=== PATIENT | male | born 1945 | race Caucasian/White ===

== ENCOUNTER 2020-12-15 17:01 | Day surgery (SDC) | payer MEDICARE ==
[2020-12-15] MEDS ORDERED: diphenhydrAMINE 25 MG CAP ONE (17:22)
[2020-12-15] MEDS ORDERED: Acetaminophen 500 MG TAB ONE (17:22)
[2020-12-15 19:32] LABS: #Eosinphils 0.1 thou/uL (0.0-0.7); #Lymphocytes 1.2 thou/uL (1.20-3.40); #Monocytes 0.2 thou/uL (0.11-0.59); #Neutrophils 11.1 thou/uL (1.40-6.50); %Basophils 0.1 % (0.0-1.0); %Eosinophils 1.2 % (0.0-10.0); %Lymphocytes 9.7 % (21.0-51.0); %Monocytes 1.8 % (0.0-10.0); %Neutrophils 87.3 % (42.0-75.0); Hemoglobin 10.3 g/dL (14.0-18.0); Mean Corpuscular HGB CONC 35.5 g/dL (32.0-36.0); Mean Corpuscular Volume 95.9 fL (78.0-98.0); Mean Platelet Volume 8.6 fL (7.4-10.4); Platelet Count 16 thou/uL (130-400); RBC Distribution Width 12.1 % (11.5-14.5); Red Blood Cell (RBC) Count 3.04 mill/uL (4.70-6.10); White Blood Cell (WBC) Count 12.7 thou/uL (4.8-10.8)
== END 2020-12-15 19:00 | disposition home or self-care (01) ==
LOC: SDC/OP 17:01
PROVIDERS: ATTEND Internal Medicine Hematology & Oncology
PROC: 30233R1 Transfusion of Nonautologous Platelets into Peripheral Vein, Percutaneous Approach (ICD-10-PCS; principal; 2020-12-15)
DX: D69.6 Thrombocytopenia, unspecified (principal); D64.9 Anemia, unspecified
CPT/HCPCS: 36430; 85025; 86850; 86900; 86901; P9035; 36415

== ENCOUNTER 2020-12-24 09:43 | Inpatient (IN) | payer MEDICARE ==
[2020-12-24 11:46] LABS: ALT (SGPT) 35 U/L (8-55); AST (SGOT) 24 U/L (5-34); Albumin 2.9 g/dL (3.4-4.8); Alkaline Phosphatase 80 U/L (40-110); Anion Gap 11 mmol/L (10-20); BUN (Urea Nitrogen) 13 mg/dL (8.4-25.7); Bilirubin, Total 1.5 mg/dL (0.2-1.2); Calc. Creatinine Clearance 0 mL/min (70-130); Calcium 8.4 mg/dL (7.8-10.44); Carbon Dioxide 27 mmol/L (23-31); Chloride 105 mmol/L (98-107); Globulin 3.1 g/dL (2.4-3.5); Glucose 88 mg/dL (83-110); Potassium 4.2 mmol/L (3.5-5.1); Sodium 139 mmol/L (136-145)
[2020-12-24] MEDS ORDERED: Dexamethasone 10 MG/ML VIAL ONE (12:00)
[2020-12-24 12:15] LABS: #Eosinphils 0.1 thou/uL (0.0-0.7); #Lymphocytes 1.3 thou/uL (1.20-3.40); #Monocytes 0.6 thou/uL (0.11-0.59); #Neutrophils 7.4 thou/uL (1.40-6.50); %Basophils 0.1 % (0.0-1.0); %Eosinophils 1.1 % (0.0-10.0); %Lymphocytes 13.7 % (21.0-51.0); %Monocytes 6.7 % (0.0-10.0); %Neutrophils 78.5 % (42.0-75.0); Hemoglobin 10.9 g/dL (14.0-18.0); Mean Corpuscular Hemoglobin 34.4 pg (27.0-31.0); Mean Platelet Volume 14.1 fL (7.4-10.4); Platelet Count 2 thou/uL (130-400); RBC Distribution Width 15.1 % (11.5-14.5); Red Blood Cell (RBC) Count 3.19 mill/uL (4.70-6.10); White Blood Cell (WBC) Count 9.5 thou/uL (4.8-10.8)
[2020-12-24] MEDS ORDERED: Senokot S 8.6-50 MG TAB PO PRN (13:56)
[2020-12-24] MEDS ORDERED: Acetaminophen 325 MG TAB PO PRN (13:56)
[2020-12-24] MEDS ORDERED: Benzonatate 100 MG CAP PO PRN (14:48)
[2020-12-24 16:44] LABS: SARS-CoV-2 NAA Rapid Test DETECTED (NotDetected)
[2020-12-24] MEDS ORDERED: OCTAGAM 10% (10 GM/100 ML VIAL) IVPB SCH (17:00)
[2020-12-24] MEDS ORDERED: ADMIXTURE FEE IVPB SCH (17:30)
[2020-12-24] MEDS ORDERED: OCTAGAM IVPB SCH (17:30)
[2020-12-24 19:09] VITALS: BMI 22.8
[2020-12-24] MEDS: Famotidine 20 MG TAB PO SCH (20:08)
[2020-12-24] MEDS: Atorvastatin Calcium 20 MG TAB PO SCH (20:08)
[2020-12-24 21:49] LABS: #Lymphocytes 0.4 thou/uL (1.20-3.40); #Monocytes 0.1 thou/uL (0.11-0.59); %Basophils 0.4 % (0.0-1.0); %Eosinophils 0.1 % (0.0-10.0); %Lymphocytes 5.9 % (21.0-51.0); %Neutrophils 92.6 % (42.0-75.0); Hemoglobin 10.2 g/dL (14.0-18.0); Mean Corpuscular HGB CONC 33.5 g/dL (32.0-36.0); Mean Corpuscular Hemoglobin 33.5 pg (27.0-31.0); Mean Corpuscular Volume 99.9 fL (78.0-98.0); Mean Platelet Volume 11.9 fL (7.4-10.4); Platelet Count 3 thou/uL (130-400); RBC Distribution Width 14.9 % (11.5-14.5); Red Blood Cell (RBC) Count 3.05 mill/uL (4.70-6.10); White Blood Cell (WBC) Count 6.5 thou/uL (4.8-10.8)
[2020-12-25 08:57] LABS: Hemoglobin 8.8 g/dL (14.0-18.0); Mean Corpuscular HGB CONC 33.1 g/dL (32.0-36.0); Mean Corpuscular Hemoglobin 33.3 pg (27.0-31.0); Mean Platelet Volume 14.9 fL (7.4-10.4); Platelet Count 7 thou/uL (130-400); RBC Distribution Width 14.6 % (11.5-14.5); Red Blood Cell (RBC) Count 2.63 mill/uL (4.70-6.10); White Blood Cell (WBC) Count 8.4 thou/uL (4.8-10.8)
[2020-12-25 09:29] LABS: #Basophils 0.1 thou/uL (0.0-0.2); #Lymphocytes 0.4 thou/uL (1.20-3.40); #Monocytes 0.3 thou/uL (0.11-0.59); #Neutrophils 7.7 thou/uL (1.40-6.50); %Basophils 0.6 % (0.0-1.0); %Lymphocytes 4.8 % (21.0-51.0); %Monocytes 3.3 % (0.0-10.0); %Neutrophils 91.2 % (42.0-75.0); MDiff Complete? YES; Platelet Morphology Comment Appears Decreased; Polychromasia SLIGHT = 2-3 cells (100X) (0-2/hpf)
[2020-12-25] MEDS: Lisinopril 20 MG TAB PO SCH (09:35)
[2020-12-25] MEDS: Famotidine 20 MG TAB PO SCH (09:41)
[2020-12-25] MEDS ORDERED: Dexamethasone 40 MG in Sodium Chloride 0.9% 50 ML IVPB SCH (14:00)
[2020-12-25 15:14] LABS: #Basophils 0.1 thou/uL (0.0-0.2); #Lymphocytes 0.5 thou/uL (1.20-3.40); #Monocytes 0.5 thou/uL (0.11-0.59); #Neutrophils 12.3 thou/uL (1.40-6.50); %Basophils 0.5 % (0.0-1.0); %Eosinophils 0.1 % (0.0-10.0); %Lymphocytes 3.5 % (21.0-51.0); %Monocytes 3.8 % (0.0-10.0); %Neutrophils 92.1 % (42.0-75.0); Mean Corpuscular HGB CONC 34.6 g/dL (32.0-36.0); Mean Corpuscular Hemoglobin 34.9 pg (27.0-31.0); Mean Platelet Volume 10.5 fL (7.4-10.4); Platelet Count 42 thou/uL (130-400); RBC Distribution Width 14.5 % (11.5-14.5); Red Blood Cell (RBC) Count 2.31 mill/uL (4.70-6.10); White Blood Cell (WBC) Count 13.3 thou/uL (4.8-10.8)
[2020-12-25] MEDS: Atorvastatin Calcium 20 MG TAB PO SCH (20:03)
[2020-12-26 07:24] LABS: #Lymphocytes 0.6 thou/uL (1.20-3.40); #Monocytes 0.4 thou/uL (0.11-0.59); #Neutrophils 14.7 thou/uL (1.40-6.50); %Basophils 0.2 % (0.0-1.0); %Eosinophils 0.1 % (0.0-10.0); %Lymphocytes 3.9 % (21.0-51.0); %Monocytes 2.4 % (0.0-10.0); %Neutrophils 93.4 % (42.0-75.0); Hemoglobin 8.7 g/dL (14.0-18.0); Mean Corpuscular HGB CONC 32.9 g/dL (32.0-36.0); Mean Corpuscular Hemoglobin 33.4 pg (27.0-31.0); Mean Platelet Volume 12.3 fL (7.4-10.4); Platelet Count 46 thou/uL (130-400); RBC Distribution Width 14.6 % (11.5-14.5); White Blood Cell (WBC) Count 15.8 thou/uL (4.8-10.8)
[2020-12-26] MEDS: Lisinopril 20 MG TAB PO SCH (09:34)
[2020-12-26] MEDS: Dexamethasone 40 MG in Sodium Chloride 0.9% 50 ML IVPB SCH (09:36)
[2020-12-26] MEDS: Atorvastatin Calcium 20 MG TAB PO SCH (20:19)
[2020-12-27 06:01] LABS: #Basophils 0.1 thou/uL (0.0-0.2); #Lymphocytes 0.8 thou/uL (1.20-3.40); #Monocytes 0.6 thou/uL (0.11-0.59); #Neutrophils 13.7 thou/uL (1.40-6.50); %Basophils 0.6 % (0.0-1.0); %Eosinophils 0.1 % (0.0-10.0); %Neutrophils 90.3 % (42.0-75.0); Hemoglobin 8.8 g/dL (14.0-18.0); Mean Corpuscular HGB CONC 34.2 g/dL (32.0-36.0); Mean Corpuscular Hemoglobin 34.6 pg (27.0-31.0); Mean Platelet Volume 10.9 fL (7.4-10.4); Platelet Count 80 thou/uL (130-400); RBC Distribution Width 14.8 % (11.5-14.5); Red Blood Cell (RBC) Count 2.54 mill/uL (4.70-6.10); White Blood Cell (WBC) Count 15.2 thou/uL (4.8-10.8)
[2020-12-27] MEDS: Dexamethasone 40 MG in Sodium Chloride 0.9% 50 ML IVPB SCH (08:57)
[2020-12-27] MEDS: Lisinopril 20 MG TAB PO SCH (09:02)
[2020-12-27] MEDS: Atorvastatin Calcium 20 MG TAB PO SCH (20:17)
[2020-12-28 06:37] LABS: #Lymphocytes 0.8 thou/uL (1.20-3.40); #Monocytes 0.7 thou/uL (0.11-0.59); #Neutrophils 9.8 thou/uL (1.40-6.50); %Basophils 0.1 % (0.0-1.0); %Eosinophils 0.3 % (0.0-10.0); %Monocytes 6.1 % (0.0-10.0); %Neutrophils 86.6 % (42.0-75.0); Hemoglobin 9.2 g/dL (14.0-18.0); Mean Corpuscular HGB CONC 33.8 g/dL (32.0-36.0); Mean Corpuscular Hemoglobin 34.2 pg (27.0-31.0); Mean Platelet Volume 10.3 fL (7.4-10.4); Platelet Count 115 thou/uL (130-400); RBC Distribution Width 14.6 % (11.5-14.5); Red Blood Cell (RBC) Count 2.68 mill/uL (4.70-6.10); White Blood Cell (WBC) Count 11.3 thou/uL (4.8-10.8)
[2020-12-28 08:44] VITALS: TEMP 97.7
[2020-12-28] MEDS: Lisinopril 20 MG TAB PO SCH (08:56)
[2020-12-28] MEDS: Dexamethasone 40 MG in Sodium Chloride 0.9% 50 ML IVPB SCH (08:56)
[2020-12-28 08:57] VITALS: BP 155/75
== END 2020-12-28 13:25 | disposition home or self-care (01) | DRG 178 ==
LOC: ERS 09:43 → T4-B 13:34
PROVIDERS: ADMIT Student in an Organized Health Care Education/Training Program; ATTEND Student in an Organized Health Care Education/Training Program
PROC: 30233R1 Transfusion of Nonautologous Platelets into Peripheral Vein, Percutaneous Approach (ICD-10-PCS; principal; 2020-12-24)
PROC: 3E0333Z Introduction of Anti-inflammatory into Peripheral Vein, Percutaneous Approach (ICD-10-PCS; 2020-12-24)
PROC: 30233S1 Transfusion of Nonautologous Globulin into Peripheral Vein, Percutaneous Approach (ICD-10-PCS; 2020-12-24)
DX: U07.1 COVID-19 (principal); D69.3 Immune thrombocytopenic purpura; F17.210 Nicotine dependence, cigarettes, uncomplicated; I10 Essential (primary) hypertension; I73.9 Peripheral vascular disease, unspecified; J98.8 Other specified respiratory disorders; E78.2 Mixed hyperlipidemia; R05 Cough; E78.5 Hyperlipidemia, unspecified; Z79.899 Other long term (current) drug therapy; Z82.3 Family history of stroke; Z98.890 Other specified postprocedural states
CPT/HCPCS: 36415; 36430; 80053; 85025; 86850; 86900; 86901; 96374; J1100; J1568; P9035; U0002

== ENCOUNTER 2021-01-13 11:38 | Inpatient (IN) | payer MEDICARE ==
[2021-01-13 12:53] LABS: ALT (SGPT) 16 U/L (8-55); AST (SGOT) 20 U/L (5-34); Albumin 3.1 g/dL (3.4-4.8); Alkaline Phosphatase 115 U/L (40-110); Anion Gap 8 mmol/L (10-20); BUN (Urea Nitrogen) 7 mg/dL (8.4-25.7); Bilirubin, Total 0.8 mg/dL (0.2-1.2); Calc. Creatinine Clearance 0 mL/min (70-130); Calcium 8.9 mg/dL (7.8-10.44); Carbon Dioxide 30 mmol/L (23-31); Chloride 106 mmol/L (98-107); Globulin 3.9 g/dL (2.4-3.5); Glucose 137 mg/dL (83-110); Potassium 4.4 mmol/L (3.5-5.1); Sodium 140 mmol/L (136-145)
[2021-01-13 13:11] LABS: #Basophils 0.1 thou/uL (0.0-0.2); #Eosinphils 0.3 thou/uL (0.0-0.7); #Lymphocytes 1.6 thou/uL (1.20-3.40); #Monocytes 0.6 thou/uL (0.11-0.59); #Neutrophils 3.1 thou/uL (1.40-6.50); %Basophils 0.9 % (0.0-1.0); %Eosinophils 5.2 % (0.0-10.0); %Lymphocytes 28.2 % (21.0-51.0); %Monocytes 10.4 % (0.0-10.0); %Neutrophils 55.3 % (42.0-75.0); Mean Corpuscular HGB CONC 32.9 g/dL (32.0-36.0); Mean Corpuscular Hemoglobin 33.7 pg (27.0-31.0); Mean Platelet Volume 14.1 fL (7.4-10.4); Platelet Count 3 thou/uL (130-400); RBC Distribution Width 14.7 % (11.5-14.5); Red Blood Cell (RBC) Count 3.27 mill/uL (4.70-6.10); White Blood Cell (WBC) Count 5.7 thou/uL (4.8-10.8)
[2021-01-13 13:13] LABS: MDiff Complete? YES; Macrocytosis SLIGHT = 6-15 cells (100X) (0-5/hpf); Platelet Morphology Comment Appears Decreased; Polychromasia SLIGHT = 2-3 cells (100X) (0-2/hpf)
[2021-01-13] MEDS ORDERED: Dexamethasone 10 MG/ML VIAL ONE (15:54)
[2021-01-13] MEDS ORDERED: OCTAGAM 10% 60 GM, OCTAGAM 10% 10 GM in Premix Bag 1 BAG IVPB SCH (17:15)
[2021-01-13 20:00] VITALS: BMI 23.0
[2021-01-13] MEDS: Atorvastatin Calcium 40 MG TAB PO SCH (20:11)
[2021-01-14] MEDS ORDERED: hydrALAZINE 20 MG/ML VIAL SLOW IVP PRN ×2 (04:28→09:40)
[2021-01-14 06:47] LABS: Hemoglobin 9.2 g/dL (14.0-18.0); Mean Corpuscular HGB CONC 32.6 g/dL (32.0-36.0); Mean Corpuscular Hemoglobin 33.8 pg (27.0-31.0); Mean Platelet Volume 14.4 fL (7.4-10.4); Platelet Count 18 thou/uL (130-400); RBC Distribution Width 14.6 % (11.5-14.5); Red Blood Cell (RBC) Count 2.72 mill/uL (4.70-6.10); White Blood Cell (WBC) Count 4.2 thou/uL (4.8-10.8)
[2021-01-14 06:51] LABS: ALT (SGPT) 14 U/L (8-55); AST (SGOT) 17 U/L (5-34); Albumin 2.5 g/dL (3.4-4.8); Alkaline Phosphatase 84 U/L (40-110); Bilirubin, Direct 0.3 mg/dL (0.1-0.3); Bilirubin, Total 0.6 mg/dL (0.2-1.2); Protein, Total 7.8 g/dL (5.8-8.1)
[2021-01-14 07:43] LABS: #Lymphocytes 0.5 thou/uL (1.20-3.40); #Monocytes 0.1 thou/uL (0.11-0.59); #Neutrophils 3.6 thou/uL (1.40-6.50); %Basophils 0.1 % (0.0-1.0); %Eosinophils 0.6 % (0.0-10.0); %Monocytes 2.2 % (0.0-10.0); %Neutrophils 85.2 % (42.0-75.0)
[2021-01-14] MEDS ORDERED: Dexamethasone 40 MG in Sodium Chloride 0.9% 50 ML IVPB SCH (09:00)
[2021-01-14] MEDS ORDERED: Lisinopril 20 MG TAB PO SCH (09:00)
[2021-01-14] MEDS: Dexamethasone Sod Phosphate 40 MG in Sodium Chloride 0.9% 50 ML IVPB SCH (09:28)
[2021-01-14] MEDS: Ferrous Sulfate 325 MG TAB PO SCH (09:28)
[2021-01-14] MEDS: Loratadine 10 MG TAB PO SCH (09:28)
[2021-01-14] MEDS ORDERED: OCTAGAM 10% (10 GM/100 ML VIAL) IVPB SCH (17:00)
[2021-01-14] MEDS ORDERED: OCTAGAM IVPB SCH (17:00)
[2021-01-14] MEDS: Atorvastatin Calcium 40 MG TAB PO SCH (21:15)
[2021-01-15 04:36] LABS: ALT (SGPT) 11 U/L (8-55); AST (SGOT) 11 U/L (5-34); Albumin 2.2 g/dL (3.4-4.8); Alkaline Phosphatase 71 U/L (40-110); Bilirubin, Direct 0.2 mg/dL (0.1-0.3); Bilirubin, Total 0.4 mg/dL (0.2-1.2)
[2021-01-15 07:24] LABS: Mean Corpuscular HGB CONC 33.5 g/dL (32.0-36.0); Mean Corpuscular Hemoglobin 34.7 pg (27.0-31.0); Platelet Count 85 thou/uL (130-400); RBC Distribution Width 14.8 % (11.5-14.5); White Blood Cell (WBC) Count 15.8 thou/uL (4.8-10.8)
[2021-01-15 07:55] VITALS: TEMP 98.1
[2021-01-15 08:28] LABS: #Lymphocytes 1.2 thou/uL (1.20-3.40); #Monocytes 0.7 thou/uL (0.11-0.59); #Neutrophils 13.9 thou/uL (1.40-6.50); %Basophils 0.1 % (0.0-1.0); %Eosinophils 0.2 % (0.0-10.0); %Lymphocytes 7.3 % (21.0-51.0); %Monocytes 4.5 % (0.0-10.0); %Neutrophils 87.9 % (42.0-75.0)
[2021-01-15 08:41] LABS: Band 16 % (5-11); Lymphocytes 6 % (21-51); MDiff Complete? YES; Monocytes 5 % (0-10); Neutrophil 73 % (42-75); Platelet Morphology Comment Appears Decreased; RBC Morphology Normal
[2021-01-15] MEDS ORDERED: Lisinopril 20 MG TAB PO SCH (09:00)
[2021-01-15] MEDS: Ferrous Sulfate 325 MG TAB PO SCH (09:05)
[2021-01-15] MEDS: Dexamethasone Sod Phosphate 40 MG in Sodium Chloride 0.9% 50 ML IVPB SCH (09:05)
[2021-01-15] MEDS: Loratadine 10 MG TAB PO SCH (09:06)
[2021-01-15 09:11] VITALS: BP 152/67
== END 2021-01-15 11:29 | disposition home or self-care (01) | DRG 813 ==
LOC: ERS 11:38 → ONC 16:27
PROVIDERS: ADMIT Student in an Organized Health Care Education/Training Program; ATTEND Student in an Organized Health Care Education/Training Program
PROC: 30233R1 Transfusion of Nonautologous Platelets into Peripheral Vein, Percutaneous Approach (ICD-10-PCS; principal; 2021-01-13)
DX: D69.3 Immune thrombocytopenic purpura (principal); I10 Essential (primary) hypertension; E78.5 Hyperlipidemia, unspecified; D50.9 Iron deficiency anemia, unspecified; B94.8 Sequelae of other specified infectious and parasitic diseases; Z79.899 Other long term (current) drug therapy
CPT/HCPCS: 36415; 36430; 80053; 80076; 85025; 86850; 86900; 86901; 96374; 96375; J1100; J1568; P9035